=== PATIENT | female | born 1945 | race Caucasian/White ===

== ENCOUNTER 2017-08-02 17:00 | Inpatient (IN) | payer OTHER, BC ==
[~2017-08-02] VITALS: Ht 162.6 cm; Wt 50.2 kg
[2017-08-02 18:37] LABS: CHLORIDE 95 mEq/L (99-109); HEMATOCRIT 64.7 % (36.0-46.0); HEMOGLOBIN 22.6 G/DL (11.9-15.5); MCH 31.9 PG (29.0-34.0); MCHC 34.9 G/DL (30.0-36.0); MCV 91.3 FL (83-99); NRBC (%) 0.6 /100 WBC (0-0); PLATELET COUNT 75 K/uL (156-360); POTASSIUM 3.6 mEq/L (3.7-5.4); RBC DIS.WIDTH-CV 19.3 % (11.8-14.6); RBC DIS.WIDTH-SD 59.4 % (39-53); RED BLOOD COUNT 7.09 M/uL (3.80-5.20); SODIUM 131 mEq/L (136-147); WHITE BLOOD COUNT 6.5 K/uL (4.1-10.2)
[2017-08-02 18:38] LABS: MAGNESIUM 2.2 mg/dL (1.3-2.7)
[2017-08-02 18:39] LABS: GLUCOSE 111 mg/dL (70-99)
[2017-08-02 18:43] LABS: CREATININE 1.3 mg/dL (0.6-1.3); GFR ESTIMATE (CALCULATED) 43 mL/min/
[2017-08-02 18:44] LABS: UREA NITROGEN (BUN) 39 mg/dL (9-23)
[2017-08-02 18:50] LABS: TROP-I INTERPRETATION INDETERMINATE; TROPONIN-I 0.39 ng/mL (0.0-0.30)
[2017-08-02 19:32] LABS: ABS NEUTROPHIL COUNT 4.4; ANISOCYTOSIS 1+; EOSINOPHIL ABS CT 0; PLAT.SUFFICIENCY DECREASED; POLYCHROMASIA 2+
[2017-08-02] MEDS ORDERED: FOSAMAX70 MG PO (20:05)
[2017-08-02] MEDS ORDERED: DAILY VALUE1 EACH PO (20:05)
[2017-08-02] MEDS ORDERED: SPIRIVA RESPIMAT4 G1 IH (20:05)
[2017-08-02] MEDS ORDERED: CALCIUM 500 MG1 EACH PO (20:05)
[2017-08-02] MEDS ORDERED: IRON325 M1 PO (20:06)
[2017-08-02] MEDS ORDERED: CYANOCOBALAM1000 MCG PO (20:06)
[2017-08-02] MEDS ORDERED: VITAMIN D31000 UNIT PO (20:06)
[2017-08-03] VITALS (7 sets, daily range): BP systolic 110–137; BP diastolic 55–88
[2017-08-03] LABS: PTT 64.8 SEC (25-37)
[2017-08-03 00:16] LABS: MAGNESIUM 1.9 mg/dL (1.3-2.7)
[2017-08-03 01:10] LABS: HDL CHOLESTEROL 60 MG/DL (Desirable>=50); LDL CHOLESTEROL 77 mg/dL (Desirable<100); NON-HDL CHOLESTEROL 92 mg/dL (Desirable<160); TOTAL CHOLESTEROL 152 mg/dL (Desirable<200); TRIGLYCERIDES 77 MG/DL (Normal: <150)
[2017-08-03 02:18] LABS: TROP-I INTERPRETATION INDETERMINATE; TROPONIN-I 0.43 ng/mL (0.0-0.30)
[2017-08-03 06:03] LABS: HEMATOCRIT 31.7 % (36.0-46.0); MCHC 34.4 G/DL (30.0-36.0); RBC DIS.WIDTH-CV 17.6 % (11.8-14.6); RBC DIS.WIDTH-SD 59.5 % (39-53); WHITE BLOOD COUNT 9.4 K/uL (4.1-10.2)
[2017-08-03 06:05] LABS: HEMOGLOBIN 10.9 G/DL (11.9-15.5); PLATELET COUNT 186 K/uL (156-360); RED BLOOD COUNT 3.41 M/uL (3.80-5.20)
[2017-08-03 06:12] LABS: TROP-I INTERPRETATION NEGATIVE
[2017-08-03 07:10] LABS: ALBUMIN 3.2 G/DL (3.2-4.8); ALKALINE PHOSPHATASE 53 IU/L (3-129); ALT (GPT) 14 IU/L (3-49); AST (GOT) 28 IU/L (2-34); CHLORIDE 95 MEQ/L (99-109); GLUCOSE 135 mg/dL (70-99); SODIUM 127 MEQ/L (136-147); TOTAL BILIRUBIN 0.6 MG/DL (0.0-1.0); TOTAL PROTEIN 6.7 G/DL (6.4-8.3); UREA NITROGEN (BUN) 23 mg/dL (9-23)
[2017-08-03 07:21] LABS: CREATININE 0.7 MG/DL (0.6-1.3); GFR ESTIMATE (CALCULATED) > 59 mL/min/; POTASSIUM 4.4 MEQ/L (3.7-5.4)
[2017-08-03 07:40] LABS: ABS NEUTROPHIL COUNT 8.6; ANISOCYTOSIS 1+; EOSINOPHIL ABS CT 0; PLAT.SUFFICIENCY ADEQUATE; POLYCHROMASIA 2+
[2017-08-04 03:30] VITALS: BP 110/52
[2017-08-04 05:39] LABS: HEMATOCRIT 28.7 % (36.0-46.0); HEMOGLOBIN 9.5 G/DL (11.9-15.5); MCH 30.9 PG (29.0-34.0); MCHC 33.1 G/DL (30.0-36.0); MCV 93.5 FL (83-99); PLATELET COUNT 202 K/uL (156-360); RBC DIS.WIDTH-CV 17.2 % (11.8-14.6); RBC DIS.WIDTH-SD 58.7 % (39-53); RED BLOOD COUNT 3.07 M/uL (3.80-5.20); WHITE BLOOD COUNT 8.8 K/uL (4.1-10.2)
[2017-08-04 06:07] LABS: CHLORIDE 98 MEQ/L (99-109); CREATININE 0.6 MG/DL (0.6-1.3); GFR ESTIMATE (CALCULATED) > 59 mL/min/; GLUCOSE 160 mg/dL (70-99); POTASSIUM 4.5 MEQ/L (3.7-5.4); SODIUM 132 MEQ/L (136-147); UREA NITROGEN (BUN) 14 mg/dL (9-23)
[2017-08-04 07:25] VITALS: BP 140/70
[2017-08-04 11:24] VITALS: BP 125/59
[2017-08-04 13:09] LABS: HEMOGLOBIN A1c (GLYCOHEMOGLOB) 5.7 % (Below 5.7)
[2017-08-04 15:07] VITALS: BP 122/75
[2017-08-04 19:00] VITALS: BP 113/56
[2017-08-04 23:00] VITALS: BP 125/68
[2017-08-05 06:17] LABS: BASOPHIL (%) 0.3 % (0-1); EOSINOPHIL (%) 0.2 % (0-5); HEMATOCRIT 36.8 % (36.0-46.0); IMMATURE GRANULOCYTE (%) 1.9 % (0.0-0.7); LYMPHOCYTE (%) 17.5 % (15-42); LYMPHOCYTE COUNT 2.2 K/uL (1.0-2.8); MCH 30.8 PG (29.0-34.0); MCHC 32.1 G/DL (30.0-36.0); MCV 96.1 FL (83-99); MONOCYTE (%) 9.1 % (3-12); MONOCYTE COUNT 1.2 K/uL (0-0.8); RBC DIS.WIDTH-CV 17.6 % (11.8-14.6); RBC DIS.WIDTH-SD 61.7 % (39-53); WHITE BLOOD COUNT 12.7 K/uL (4.1-10.2)
[2017-08-05 06:23] LABS: HEMOGLOBIN 11.8 G/DL (11.9-15.5); PLATELET COUNT 311 K/uL (156-360); RED BLOOD COUNT 3.83 M/uL (3.80-5.20)
[2017-08-05 06:32] LABS: ALBUMIN 3.4 G/DL (3.2-4.8); ALKALINE PHOSPHATASE 54 IU/L (3-129); AST (GOT) 31 IU/L (2-34); CHLORIDE 98 MEQ/L (99-109); CREATININE 0.7 MG/DL (0.6-1.3); GFR ESTIMATE (CALCULATED) > 59 mL/min/; POTASSIUM 4.7 MEQ/L (3.7-5.4); SODIUM 135 MEQ/L (136-147); TOTAL BILIRUBIN 0.5 MG/DL (0.0-1.0); TOTAL PROTEIN 6.9 G/DL (6.4-8.3); UREA NITROGEN (BUN) 14 mg/dL (9-23)
[2017-08-05 06:35] LABS: ALT (GPT) 30 IU/L (3-49); GLUCOSE 85 mg/dL (70-99)
[2017-08-05 07:28] VITALS: BP 144/67
[2017-08-05 11:58] VITALS: BP 106/57
[2017-08-05 16:39] VITALS: BP 129/73
[2017-08-05 19:00] VITALS: BP 118/59
[2017-08-05 23:56] VITALS: BP 115/62
[2017-08-06 03:39] VITALS: BP 124/64
[2017-08-06 06:29] LABS: HEMATOCRIT 31.9 % (36.0-46.0); HEMOGLOBIN 10.4 G/DL (11.9-15.5); MCH 30.9 PG (29.0-34.0); MCHC 32.6 G/DL (30.0-36.0); MCV 94.7 FL (83-99); PLATELET COUNT 282 K/uL (156-360); RBC DIS.WIDTH-CV 17.1 % (11.8-14.6); RBC DIS.WIDTH-SD 59.1 % (39-53); RED BLOOD COUNT 3.37 M/uL (3.80-5.20); WHITE BLOOD COUNT 8.9 K/uL (4.1-10.2)
[2017-08-06 06:50] LABS: CHLORIDE 96 MEQ/L (99-109); CREATININE 0.6 MG/DL (0.6-1.3); GFR ESTIMATE (CALCULATED) > 59 mL/min/; GLUCOSE 95 mg/dL (70-99); POTASSIUM 4.6 MEQ/L (3.7-5.4); SODIUM 132 MEQ/L (136-147); UREA NITROGEN (BUN) 8 mg/dL (9-23)
[2017-08-06 08:14] VITALS: BP 129/66
[2017-08-06 11:28] VITALS: BP 134/59
[2017-08-06] MEDS ORDERED: PREDNISONE10 MG PO (12:29)
[2017-08-06] MEDS ORDERED: ROBITUSSIN NIG237 ML PO (12:31)
[2017-08-06] MEDS ORDERED: LISINOPRIL-HCT1 EACH PO (14:36)
[2017-08-06 15:55] VITALS: BP 190/88
[2017-08-06 20:04] VITALS: BP 140/65
[2017-08-07 00:27] VITALS: BP 173/72
[2017-08-07 04:07] VITALS: BP 167/79
[2017-08-07 05:44] LABS: HEMATOCRIT 32.6 % (36.0-46.0); HEMOGLOBIN 10.8 G/DL (11.9-15.5); MCHC 33.1 G/DL (30.0-36.0); MCV 93.7 FL (83-99); NRBC (%) 0.2 /100 WBC (0-0); PLATELET COUNT 318 K/uL (156-360); RBC DIS.WIDTH-CV 16.7 % (11.8-14.6); RBC DIS.WIDTH-SD 56.6 % (39-53); RED BLOOD COUNT 3.48 M/uL (3.80-5.20); WHITE BLOOD COUNT 10.8 K/uL (4.1-10.2)
[2017-08-07 06:07] LABS: CHLORIDE 96 MEQ/L (99-109); CREATININE 0.6 MG/DL (0.6-1.3); GFR ESTIMATE (CALCULATED) > 59 mL/min/; GLUCOSE 102 mg/dL (70-99); POTASSIUM 4.7 MEQ/L (3.7-5.4); SODIUM 133 MEQ/L (136-147); UREA NITROGEN (BUN) 11 mg/dL (9-23)
[2017-08-07 07:37] VITALS: BP 173/82
[2017-08-07] MEDS ORDERED: VANCOMYCIN HCL1 GM IV (11:02)
[2017-08-07 11:35] VITALS: BP 172/79
== END 2017-08-07 14:36 | disposition home or self-care (01) | DRG 871 ==
LOC: EME 17:00 → 4SOUTH 23:17 → 4EAST 23:17 → 5WEST 23:17 → EDOF 23:17 → ENRESERV 23:22 → 4EAST 08-03 00:47 → ENRESERV 08-04 22:40 → 5WEST 08-05 00:19 → ENRESERV 08-07 07:29 → 4SOUTH 08-07 07:52
PROVIDERS: Emergency Medicine; Family Medicine; Hospitalist; Student in an Organized Health Care Education/Training Program
DX: A41.02 Sepsis due to Methicillin resistant Staphylococcus aureus (principal); J15.212 Pneumonia due to Methicillin resistant Staphylococcus aureus; J45.901 Unspecified asthma with (acute) exacerbation; J96.01 Acute respiratory failure with hypoxia; E87.6 Hypokalemia; R74.8 Abnormal levels of other serum enzymes; D69.6 Thrombocytopenia, unspecified; J84.10 Pulmonary fibrosis, unspecified; E87.1 Hypo-osmolality and hyponatremia; I10 Essential (primary) hypertension; I27.20 Pulmonary hypertension, unspecified; M81.0 Age-related osteoporosis without current pathological fracture; Z87.891 Personal history of nicotine dependence
CPT/HCPCS: 71045; 71275; 76937; 80048; 80053; 80061; 80202; 83036; 83605; 83735; 84484; 85025; 85027; 85610; 85730; 87040; 87070; 87077; 87147; 87186; 87205; 87449; 87502; 87801; 93005; 93306; 94640; 94640 76; 94760; 94799; 99202; 99281; 99285; J0456; J0696; J1644; J2930; J3370; J7030; J7120; J7512